=== PATIENT | male | born 1990 | race African-American/Black ===

== ENCOUNTER 2018-12-23 12:01 | Emergency (ER) | payer SELFPAY ==
[2018-12-23] MEDS ORDERED: cefTRIAXone\\ROCEPHIN 250 MG VIAL ONE (13:34)
[2018-12-23] MEDS ORDERED: Azithromycin 500 MG VIAL ONE (13:35)
[2018-12-23] MEDS ORDERED: Azithromycin 250 MG TAB ONE (13:36)
[2018-12-23] MEDS ORDERED: Water For Inject, Bacteriostat 30 ML ONE (13:38)
== END 2018-12-23 13:40 | disposition home or self-care (01) ==
LOC: ERS 12:01
DX: Z20.2 Contact with and (suspected) exposure to infections with a predominantly sexual mode of transmission (principal); F17.210 Nicotine dependence, cigarettes, uncomplicated
CPT/HCPCS: 87491; 87591; 99283; J0456; J0696